=== PATIENT | male | born 1970 | race Caucasian/White ===

== ENCOUNTER 2018-11-06 03:56 | Inpatient (IN) | payer BC ==
[~2018-11-06] VITALS: Ht 177.8 cm; Wt 83.1 kg
[~2018-11-06 03:56] MED LIST: CARAS PO; FOLI-49 PO; METO10TA3 PO; MULTI PO; ONDA4TAB8 PO; PANT40TA4 PO; THIA100T10 PO
[2018-11-06 04:06] VITALS: Ht 177.8 cm; Wt 83.1 kg
[2018-11-06] MEDS ORDERED: OCTREOTIDE 500 MCG in SOD CHLORIDE 0.9% 49 ML IV STA (06:26)
[2018-11-06] MEDS ORDERED: ONDANSETRON 4 MG INJ IV STA (06:26)
[2018-11-06] MEDS ORDERED: PANTOPRAZOLE IV 80 MG in SOD CHLORIDE 0.9% 100 ML IV STA (06:26)
[2018-11-06] MEDS ORDERED: CEFTRIAXONE 1 GM/50 ML (PMX) 50 ML IVPB STA (06:26)
[2018-11-06] MEDS ORDERED: SOD CHLORIDE 0.9% 1,000 ML IV STA (06:26)
[2018-11-06] MEDS ORDERED: PANTOPRAZOLE IV 80 MG in SOD CHLORIDE 0.9% 100 ML IVPB STA (06:26)
[2018-11-06] MEDS ORDERED: OCTREOTIDE 50 MCG in SOD CHLORIDE 0.9% 25 ML IVPB STA (06:26)
[2018-11-06] MEDS ORDERED: MULTIVITAMINS 10 ML, THIAMINE 100 MG, FOLIC ACID 1 MG, MAGNESIUM SULFATE 2 GM in SOD CH... IV ONE (06:30)
[2018-11-06] MEDS ORDERED: LORAZEPAM 2 MG INJ IV ONE (06:30)
[2018-11-06] MEDS ORDERED: MULTIVITAMINS 10 ML, FOLIC ACID 1 MG, MAGNESIUM SULFATE 2 GM in SOD CHLORIDE 0.9% 1,000 ML IV ONE (08:00)
[2018-11-06] MEDS ORDERED: THIAMINE 100 MG TAB PO ONE (08:00)
[2018-11-06] MEDS ORDERED: ACETAMINOPHEN 325 MG TAB PO PRN ×2 (08:30→11:00)
[2018-11-06] MEDS ORDERED: ONDANSETRON 4 MG INJ IV PRN ×2 (08:30→11:00)
--- NOTE | 2018-11-06 09:05 | ERD ---
ER Documentation Chief Complaint Chief Complaint BIB-RA x hematemesis @ home; hx laser surgery of throat HPI This is a 48-year-old gentleman history of alcohol abuse, reported cirrhosis and esophageal varices who presents with multiple complaints. The patient states that he has had 1-2 episodes of hematemesis. He states that he has been binge drinking for 3-4 days. He does describe mild epigastric abdominal discomfort. No chest pain or pressure. The patient is feeling somewhat tremulous. ROS All systems reviewed and are negative except as per history of present illness. Medications Home Meds Active Scripts Ondansetron Hcl* (Zofran*) 4 Mg Tablet, 4 MG PO Q6H for NAUSEA AND/OR VOMITING, #30 TAB Prov:GHAZALA ADKINS PA-C 06/30/16 Folic Acid* (Folic Acid*) 1 Mg Tablet, 1 MG PO DAILY for 60 Days, TAB Prov:WEI LEMOS MD 05/28/16 Thiamine* (Thiamine*) 100 Mg Tablet, 100 MG PO DAILY for 60 Days, TAB Prov:WEI LEMOS MD 05/28/16 Multivitamins* (Theragran*) 1 Tab Tab, 1 TAB PO DAILY for 60 Days, TAB Prov:WEI LEMOS MD 05/28/16 Sucralfate* (Carafate*) 1 Gm/10 Ml Susp, 1 GM PO QID for 30 Days, #120 Prov:WEI LEMOS MD 05/28/16 Pantoprazole* (Pantoprazole*) 40 Mg Tablet.dr, 40 MG PO BID for 30 Days, #60 Prov:WEI LEMOS MD 05/28/16 Metoclopramide Hcl* (Metoclopramide Hcl*) 10 Mg Tablet, 10 MG PO Q6 for 30 Days, #120 TAB Prov:WEI LEMOS MD 05/28/16 Allergies Allergies: Coded Allergies: No Known Allergy (Unverified , 05/26/16) PMhx/Soc History of Surgery: Yes (Throat problem Surgery site thru temporal area. THROAT STENT PLACEMENT) Anesthesia Reaction: No Hx Neurological Disorder: No Hx Respiratory Disorders: No Hx Cardiac Disorders: No Hx Psychiatric Problems: Yes (anxiety-depression) Hx Miscellaneous Medical Probl: No (hiatal hernia, severe ulcerative espophagitis, PANCREATITIS, MADDIE CIRRHOSIS) Hx Alcohol Use: Yes Hx Substance Use: No Hx Tobacco Use: No (quit 25 years ago) Smoking Status: Former smoker FmHx Family History: No diabetes Physical Exam Vitals Vital Signs Date Temp Pulse Resp B/P (MAP) Pulse Ox O2 O2 Flow FiO2 Time Delivery Rate 11/06/18 98.3 92 18 153/82 96 04:06 (105) Physical Exam General: Slight tremor, no distress Head: Normocephalic, atraumatic. Eyes: Pupils equally reactive, EOM intact ENT: Moist mucous membranes Neck: Supple, no lymphadenopathy Respiratory: Lungs clear bilaterally, no distress Cardiovascular: RRR, no murmurs, rubs, or gallops Abdominal: Soft, non-tender, non-distended, no peritoneal signs : Deferred MSK: No edema, no unilateral swelling, 5/5 strength Neurologic: Alert and oriented, moving all extremities, normal speech, no focal weakness, no cerebellar signs Skin: No rash Psych: Normal mood Result Diagram: 11/06/18 0532 11/06/18 0532 Results 24 hrs Laboratory Tests Test 11/06/18 05:32 11/06/18 08:00 White Blood Count 4.9 10^3/ul Red Blood Count 4.36 10^6/ul Hemoglobin 13.1 g/dl Hematocrit 39.8 % Mean Corpuscular Volume 91.3 fl Mean Corpuscular Hemoglobin 30.0 pg Mean Corpuscular Hemoglobin Concent 32.9 g/dl Red Cell Distribution Width 17.4 % Platelet Count 143 10^3/UL Mean Platelet Volume 9.4 fl Immature Granulocytes % 0.200 % Neutrophils % 72.1 % Lymphocytes % 16.0 % Monocytes % 9.9 % Eosinophils % 0.8 % Basophils % 1.0 % Nucleated Red Blood Cells % 0.0 /100WBC Immature Granulocytes # 0.010 10^3/ul Neutrophils # 3.5 10^3/ul Lymphocytes # 0.8 10^3/ul Monocytes # 0.5 10^3/ul Eosinophils # 0.0 10^3/ul Basophils # 0.1 10^3/ul Nucleated Red Blood Cells # 0.0 10^3/ul Prothrombin Time 13.0 Sec Prothrombin Time Ratio 1.0 INR International Normalized Ratio 0.97 Activated Partial Thromboplast Time 31.8 Sec Sodium Level 139 mmol/L Potassium Level 4.1 mmol/L Chloride Level 99 mmol/L Carbon Dioxide Level 23 mmol/L Anion Gap 17 Blood Urea Nitrogen 10 mg/dl Creatinine 0.66 mg/dl Est Glomerular Filtrat Rate mL/min > 60 mL/min Glucose Level 100 mg/dl Calcium Level 9.7 mg/dl Total Bilirubin 0.5 mg/dl Direct Bilirubin 0.00 mg/dl Indirect Bilirubin 0.5 mg/dl Aspartate Amino Transf (AST/SGOT) 73 IU/L Alanine Aminotransferase (ALT/SGPT) 14 IU/L Alkaline Phosphatase 135 IU/L Total Protein 8.0 g/dl Albumin 4.3 g/dl Globulin 3.70 g/dl Albumin/Globulin Ratio 1.16 Troponin I < 0.012 ng/ml Lipase 26 U/L Current Medications Medications Dose Sig/Tk Start Time Status Last (Trade) Ordered Route PRN Stop Time Admin Dose Reason Admin Sodium 1,000 ml @ Q1H STAT 11/06/18 DC 11/06/18 Chloride 1,000 mls/hr IV 06:26 06:56 11/06/18 07:25 Pantoprazole 100 ml @ ONCE STAT 11/06/18 DC 11/06/18 80 mg/Sodium 400 mls/hr IVPB 06:26 06:26 Chloride 11/06/18 06:40 Pantoprazole 100 ml @ ONCE STAT 11/06/18 11/06/18 80 mg/Sodium 10 mls/hr IV 06:26 08:05 Chloride 11/06/18 16:25 Octreotide 26 ml @ Q16M STAT 11/06/18 DC 11/06/18 Acetate 50 100 mls/hr IVPB 06:26 07:04 mcg/ Sodium 11/06/18 06:41 Chloride Octreotide 50 ml @ 5 ONCE STAT 11/06/18 11/06/18 Acetate 500 mls/hr IV 06:26 07:04 mcg/ Sodium 11/06/18 16:25 Chloride Ondansetron 4 mg ONCE STAT 11/06/18 DC 11/06/18 HCl (Zofran IV 06:26 06:55 Inj) 11/06/18 06:28 Ceftriaxone 50 ml @ ONCE STAT 11/06/18 DC 11/06/18 Sodium 100 mls/hr IVPB 06:26 06:56 11/06/18 06:55 1,000 ml @ Q2H ONCE 11/06/18 DC Multivitamins 500 mls/hr IV 06:30 10 11/06/18 07:54 ml/Thiamine HCl 100 mg/Folic Acid 1 mg/Magnesium Sulfate 2 gm/ Sodium Chloride Lorazepam 1 mg ONCE ONCE 11/06/18 DC 11/06/18 (Ativan) IV 06:30 06:55 11/06/18 06:31 Thiamine 100 mg ONCE ONCE 11/06/18 DC 11/06/18 HCl PO 08:00 08:49 (Vitamin B1) 11/06/18 08:01 1,014.2 ml Q2H2M ONCE 11/06/18 11/06/18 Multivitamins @ 500 mls/ IV 08:00 08:49 10 ml/Folic hr 11/06/18 10:01 Acid 1 mg/Magnesium Sulfate 2 gm/ Sodium Chloride Ondansetron 4 mg BRIDGE ORDER 11/06/18 HCl (Zofran PRN IV 08:30 Inj) NAUSEA/VOMITI 11/07/18 08:29 NG 650 mg ER BRIDGE 11/06/18 Acetaminophen PRN PO 08:30 (Tylenol .MILD PAIN 11/07/18 08:29 Tab) 1-3 OR TEMP Procedures/MDM EKG, MONITORS, & DIAGNOSTIC IMAGING: EKG: I reviewed and interpreted a 12-lead EKG. Rhythm: Normal sinus rhythm ST Changes: No contiguous ST segment elevations T waves: No contiguous T wave inversions Impression: No evidence of acute cardiac ischemia LAB INTERPRETATION: I reviewed the laboratory testing and it shows no evidence of acute process MEDICAL DECISION MAKING: The patient presents with multiple signs and symptoms consistent with mild withdrawal and likely upper GI hemorrhage. The patient is high risk given his history of cirrhosis and esophageal varices. He has no evidence of active hemorrhage currently. He does exhibit mild withdrawal symptoms that would benefit from benzodiazepines and multivitamins. ER COURSE: * Patient was given PPI bolus and drip, octreotide bolus and drip, antibiotics empirically * Patient has no evidence of further bleeding and does not require NG tube or lavage * He was given IV fluids, multivitamin, banana bag and Ativan * Patient remains him dynamically stable and can be safely admitted with nonemergent GI consultation CONSULTATION: None DISPOSITION PLAN: Accepting care team and consultations: I discussed the current laboratory data, diagnostic imaging and emergency care provided. Admitting team: Dr. Currie Admitting team indication: Insurance directed Departure Diagnosis: Primary Impression: Hematemesis Nausea presence: without nausea Qualified Codes: K92.0 - Hematemesis Additional Impressions: Upper GI hemorrhage Alcohol withdrawal Complication of substance-induced condition: uncomplicated Qualified Codes: F10.230 - Alcohol dependence with withdrawal, uncomplicated Alcohol abuse Condition: EVELYN Wade MD Nov 06, 2018 09:05
[2018-11-06] MEDS ORDERED: THIA100T56 PO (09:26)
[2018-11-06] MEDS ORDERED: PANT40TA3 PO (09:27)
[2018-11-06] MEDS ORDERED: FOLI-49 PO (09:27)
[2018-11-06] MEDS ORDERED: MULTI PO (09:27)
[2018-11-06] MEDS ORDERED: ONDA4TAB8 PO (09:27)
[2018-11-06 10:03] VITALS: BP 119/77; PULSE 84; RESP 16
[2018-11-06] MEDS ORDERED: NACL 0.9% 3 ML SYG IV SCH (11:00)
[2018-11-06] MEDS ORDERED: LORAZEPAM 2 MG INJ IV PRN (11:30)
--- NOTE | 2018-11-06 11:34 | HP ---
Date/Time of Note Date/Time of Note DATE: 11/06/18 TIME: 11:22 Assessment/Plan VTE Prophylaxis SCD applied (from Nsg): Yes Pharmacological prophylaxis: NA/contraindicated Pharm contraindication: bleeding Lines/Catheters IV Catheter Type (from Nrsg): Saline Lock Assessment/Plan Assessment/Plan 48 yo alcoholic man with cirrhosis presents with hematemesis #Hematemesis - Bloodstreaked emesis after days of vomiting is likely sybil-murphy tears. Also patient hemodynamically stable without anemia on admission. - However, with history of varices and active alcohol use must be cautious - Will consult GI for EGD - PPI, octreotide gtt. - NPO #Cirrhosis - Etiology: alcohol - Will get RUQ US to confirm diagnosis - Patient reports taking lactulose at home but currently having diarrhea. Will resume when diarrhea resolves. #Alcohol use - Reports withdrawal in the past - Will start with prn Ativan, start Librium taper if high requirements. - Social work consult. Patient does report being part of AA. DVT: SCDs GI: PPI gtt Result Diagram: 11/06/18 0532 11/06/18 0532 HPI/ROS Admit Date/Time Admit Date/Time Nov 06, 2018 at 08:24 Hx of Present Illness Mr. Jara is a 48 yo alcoholic man with history of pancreatitis, cirrhosis, and bleeding esophageal varices who presents with hematemesis. He was in his usual state of health until a few days ago, when his friend and the patient relapsed from several months of sobriety, going on a drinking binge. Reports about 5 drinks hard liquor per day. About 3 days ago he developed nausea and intractable vomiting with PO intolerance; also watery diarrhea without blood or melena. This morning he woke up to vomit and there was streaks of blood in it. Last drink of alcohol was 9 pm last night. Last hospitalization was April 2018 at [facility] for acute pancreatitis. In May he had EGD at [place] showing ulcerative esophagitis. In the ED he was afebrile, vitals normal. Hgb was 13.1. Labs otherwise unremarkable, also with normal lipase. ROS He denies fever, chills, night sweats, headache, vision changes. He DOES report throat pain. Denies abdominal pain, constipation, dyspnea, cough, chest pain/pressure/palpitations, melena, hematochezia PMH/Family/Social Past Medical History Alcoholic cirrhosis History of pancreatitis Medications Current Medications Pantoprazole 80 mg/Sodium Chloride 100 ml @ 10 mls/hr ONCE STAT IV Last administered on 11/06/18at 08:05; Admin Dose 10 MLS/HR; Start 11/06/18 at 06:26; Stop 11/06/18 at 16:25 Octreotide Acetate 500 mcg/ Sodium Chloride 50 ml @ 5 mls/hr ONCE STAT IV Last administered on 11/06/18at 07:04; Admin Dose 5 MLS/HR; Start 11/06/18 at 06:26; Stop 11/06/18 at 16:25 Ondansetron HCl (Zofran Inj) 4 mg BRIDGE ORDER PRN IV NAUSEA/VOMITING; Start 11/06/18 at 08:30; Stop 11/07/18 at 08:29 Acetaminophen (Tylenol Tab) 650 mg ER BRIDGE PRN PO .MILD PAIN 1-3 OR TEMP; Start 11/06/18 at 08:30; Stop 11/07/18 at 08:29 Coded Allergies: No Known Allergy (Unverified , 11/06/18) Past Surgical History 10-11 throat surgeries for complications after traumatic extubation Family History Significant Family History: no pertinent family hx Social History Alcohol Use: heavy Smoking Status: Former smoker Drug Use: none Exam/Review of Systems Vital Signs Vitals Vital Signs Date Temp Pulse Resp B/P (MAP) Pulse Ox O2 O2 Flow FiO2 Time Delivery Rate 11/06/18 98.4 84 16 119/77 96 10:03 (91) 11/06/18 Nasal 2.0 09:08 Cannula Exam Exam Gen: Well developed man lying in bed, well appearing. Eyes: PERRL, no icterus HEENT: Moist mucous membranes, clear oropharynx, no pharyngeal erythema or exudates Neck: Supple, nontender Card: Regular rate and rhythm, no murmurs Pulm: Clear to auscultation bilaterally Abd: Soft, nontender, nondistended. No palpable hepatosplenomegaly. No ascencio's sign Ext: No cyanosis/clubbing/edema Skin: warm, dry, well perfused. No spider angiomata Neuro: No tremors, asterixes. LUIS RITTER MD Nov 06, 2018 11:33
[2018-11-06 14:02] VITALS: BP 130/87; PULSE 86; RESP 16
[2018-11-06 20:40] VITALS: BP 132/82; PULSE 71; RESP 16
[2018-11-07] VITALS (7 sets, daily range): BP systolic 110–135; BP diastolic 70–104; PULSE 66–99; RESP 16–18
--- NOTE | 2018-11-07 12:10 | PN ---
Date/Time of Note Date/Time of Note DATE: 11/07/18 TIME: 12:07 Assessment/Plan VTE Prophylaxis Risk score (from [facility])>0 risk: 2 SCD applied (from [facility]): Yes Pharmacological prophylaxis: other Pharm contraindication: bleeding, liver dx Lines/Catheters IV Catheter Type (from [facility] [place]): Saline Lock Assessment/Plan Assessment/Plan 1. Upper GI bleeding, NPO, protonix, follow up with GI 2. Liver cirrhosis, chronic 3. Alcoholism, on ativan prn 4. DVT: SCDs Result Diagram: 11/07/18 0511 11/07/18 0511 Results 24hrs Laboratory Tests Test 11/07/18 05:11 White Blood Count 2.8 #L Red Blood Count 3.65 L Hemoglobin 11.2 L Hematocrit 34.2 L Mean Corpuscular Volume 93.7 Mean Corpuscular Hemoglobin 30.7 Mean Corpuscular Hemoglobin Concent 32.7 Red Cell Distribution Width 16.5 H Platelet Count 81 #L Mean Platelet Volume 9.7 Immature Granulocytes % 0.400 Neutrophils % 60.2 Segmented Neutrophils % (Manual) 56 Band Neutrophils % (Manual) 13 H Lymphocytes % 22.0 Lymphocytes % (Manual) 16 Reactive Lymphocytes % (Manual) 2 H Monocytes % 12.4 H Monocytes % (Manual) 7 Eosinophils % 3.9 Eosinophils % (Manual) 4 Basophils % 1.1 Basophils % (Manual) 1 Myelocytes % (Manual) 1 H Nucleated Red Blood Cells % 0.0 Immature Granulocytes # 0.010 Neutrophils # 1.7 Neutrophils # (Manual) 1.6 Band Neutrophils # 0.3 Lymphocytes (Manual) 0.4 L Lymphocytes # 0.6 L Reactive Lymphocytes # 0.0 Monocytes # 0.4 Monocytes # (Manual) 0.1 L Eosinophils # 0.1 Basophils # 0.0 Basophils # (Manual) 0.0 Myelocytes # 0.0 Nucleated Red Blood Cells # 0.0 Platelet Estimate DECREASED Polychromasia 3+ Hypochromasia 1+ Poikilocytosis 1+ Anisocytosis 1+ Target Cells 1+ Sodium Level 138 Potassium Level 4.0 Chloride Level 100 Carbon Dioxide Level 26 Anion Gap 12 Blood Urea Nitrogen 9 Creatinine 0.68 Est Glomerular Filtrat Rate mL/min > 60 Glucose Level 111 Hemoglobin A1c 5.5 Calcium Level 9.0 Phosphorus Level 3.0 Magnesium Level 1.9 Total Bilirubin 0.9 Direct Bilirubin 0.00 Indirect Bilirubin 0.9 Aspartate Amino Transf (AST/SGOT) 50 H Alanine Aminotransferase (ALT/SGPT) 10 L Alkaline Phosphatase 100 Total Protein 7.0 # Albumin 3.6 Globulin 3.40 H Albumin/Globulin Ratio 1.05 Thyroid Stimulating Hormone (TSH) 2.710 Subjective 24 Hr Interval Summary Free Text/Dictation no nausea or vomiting, no abdominal pain today Exam/Review of Systems Exam Vitals Vital Signs Date Temp Pulse Resp B/P (MAP) Pulse Ox O2 O2 Flow FiO2 Time Delivery Rate 11/07/18 98.8 67 18 134/77 96 Room Air 07:31 (96) 11/06/18 2.0 09:08 Intake and Output 11/06/18 11/06/18 11/07/18 1515:00 23:00 07:00 IntakeIntake Total 1014.2 ml 150 ml 100 ml BalanceBalance 1014.2 ml 150 ml 100 ml Constitutional: alert, oriented, well developed Psych: no complaints, nl mood/affect Head: normocephalic, atraumatic Eyes: nl conjunctiva, EOMI, nl lids ENMT: nl external ears & nose, nl lips & teeth, nl nasal mucosa & septum Neck: supple, non-tender Respiratory: clear to auscultation, normal air movement; No congested cough, No crackles/rales, No diminished breath sounds, No intercostal retraction, No labored breathing, No respirations, No tactile fremitus, No wheezing, No other Cardiovascular: regular rate and rhythm, nl pulses; No bruits, No diastolic murmur, No edema, No gallop, No irregular rhythm, No jugular venous distention (JVD), No murmurs/extra sounds, No rub, No systolic murmur, No S3, No S4, No other Gastrointestinal: soft, nl liver, spleen, non-tender Musculoskeletal: nl extremities to inspection Extremities: normal pulses; No calf tenderness, No cyanosis, No clubbing, No edema, No pitting pedal edema, No palpable cord, No tenderness, No other Neurological: [employer] II-XII intact, nl mental status, nl speech, nl strength Results Results 24hrs Laboratory Tests Test 11/07/18 05:11 White Blood Count 2.8 #L Red Blood Count 3.65 L Hemoglobin 11.2 L Hematocrit 34.2 L Mean Corpuscular Volume 93.7 Mean Corpuscular Hemoglobin 30.7 Mean Corpuscular Hemoglobin Concent 32.7 Red Cell Distribution Width 16.5 H Platelet Count 81 #L Mean Platelet Volume 9.7 Immature Granulocytes % 0.400 Neutrophils % 60.2 Segmented Neutrophils % (Manual) 56 Band Neutrophils % (Manual) 13 H Lymphocytes % 22.0 Lymphocytes % (Manual) 16 Reactive Lymphocytes % (Manual) 2 H Monocytes % 12.4 H Monocytes % (Manual) 7 Eosinophils % 3.9 Eosinophils % (Manual) 4 Basophils % 1.1 Basophils % (Manual) 1 Myelocytes % (Manual) 1 H Nucleated Red Blood Cells % 0.0 Immature Granulocytes # 0.010 Neutrophils # 1.7 Neutrophils # (Manual) 1.6 Band Neutrophils # 0.3 Lymphocytes (Manual) 0.4 L Lymphocytes # 0.6 L Reactive Lymphocytes # 0.0 Monocytes # 0.4 Monocytes # (Manual) 0.1 L Eosinophils # 0.1 Basophils # 0.0 Basophils # (Manual) 0.0 Myelocytes # 0.0 Nucleated Red Blood Cells # 0.0 Platelet Estimate DECREASED Polychromasia 3+ Hypochromasia 1+ Poikilocytosis 1+ Anisocytosis 1+ Target Cells 1+ Sodium Level 138 Potassium Level 4.0 Chloride Level 100 Carbon Dioxide Level 26 Anion Gap 12 Blood Urea Nitrogen 9 Creatinine 0.68 Est Glomerular Filtrat Rate mL/min > 60 Glucose Level 111 Hemoglobin A1c 5.5 Calcium Level 9.0 Phosphorus Level 3.0 Magnesium Level 1.9 Total Bilirubin 0.9 Direct Bilirubin 0.00 Indirect Bilirubin 0.9 Aspartate Amino Transf (AST/SGOT) 50 H Alanine Aminotransferase (ALT/SGPT) 10 L Alkaline Phosphatase 100 Total Protein 7.0 # Albumin 3.6 Globulin 3.40 H Albumin/Globulin Ratio 1.05 Thyroid Stimulating Hormone (TSH) 2.710 Medications Medication Current Medications IV Flush (NS 3 ml) 3 ml PER PROTOCOL IV ; Start 11/06/18 at 11:00 Ondansetron HCl (Zofran Inj) 4 mg Q6H PRN IV NAUSEA/VOMITING; Start 11/06/18 at 11:00 Acetaminophen (Tylenol Tab) 650 mg Q6H PRN PO .PAIN 1-3 OR TEMP; Start 11/06/18 at 11:00 Lorazepam (Ativan) 2 mg Q2H PRN IV alcohol withdrawal symptoms; Start 11/06/18 at 11:30 IVONE RYAN MD Nov 07, 2018 12:10
--- NOTE | 2018-11-07 12:15 | CONS ---
Assessment/Plan Assessment/Plan Hospital Course (Demo Recall) Summary Assessment and Plan: Assessment: Hematemesis Normocytic anemia Questionable history of Cirrhosis- DF -8.2- methylprednisolone not indicated -Abd us- fatty liver ETOH abuse History of gastric ulcers History of esophagitis Plan: PPI gtt/octreotide drip has been DC'd Restart PPI twice daily Keep NPO EGD today Endoscopy - risks/benefits/alternatives/indications of procedure and sedat ion/anesthesia discussed with patient who states understanding and gives informed consent to proceed. Patient seen in collaboration with Dr. 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 Recent recently relapsed after being sober for 3 months and went on a 3 day binge. After abruptly stopping he developed intractable n/v as well as diarrhea, he noted blood in his emesis and came to the ED for further evaluation, last drink was Wednesday or Wednesday night. Currently patient states he feels much better. I disucssed plan for EGD reviewed risks/benefits of sedation and procedure. Pt verbalized understanding stating he has had previous EGDs. Review of Systems: A 12 system, review was conducted and is negative except as noted in the HPI or here. Past Medical History Home Meds Reported Medications Pantoprazole* (Protonix*) 40 Mg Tablet.dr, 40 MG PO DAILY, TAB 11/06/18 Ondansetron Hcl* (Zofran*) 4 Mg Tablet, 4 MG PO Q6H PRN for NAUSEA AND OR VOMITING, TAB 11/06/18 Multivitamins* (Theragran*) 1 Tab Tab, 1 TAB PO DAILY, TAB 11/06/18 Folic Acid* (Folic Acid*) 1 Mg Tablet, 1 MG PO DAILY, TAB 11/06/18 Thiamine* (Vitamin B-1*) 100 Mg Tablet, 100 MG PO DAILY, TAB 11/06/18 Discontinued Scripts Ondansetron Hcl* (Zofran*) 4 Mg Tablet, 4 MG PO Q6H for NAUSEA AND/OR VOMITING, #30 TAB Prov:GHAZALA ADIKNS PA-C 06/30/16 Folic Acid* (Folic Acid*) 1 Mg Tablet, 1 MG PO DAILY for 60 Days, TAB Prov:WEI LEMOS MD 05/28/16 Thiamine* (Thiamine*) 100 Mg Tablet, 100 MG PO DAILY for 60 Days, TAB Prov:WEI LEMOS MD 05/28/16 Multivitamins* (Theragran*) 1 Tab Tab, 1 TAB PO DAILY for 60 Days, TAB Prov:WEI LEMOS MD 05/28/16 Sucralfate* (Carafate*) 1 Gm/10 Ml Susp, 1 GM PO QID for 30 Days, #120 Prov:WEI LEMOS MD 05/28/16 Pantoprazole* (Pantoprazole*) 40 Mg Tablet.dr, 40 MG PO BID for 30 Days, #60 Prov:WEI LEMOS MD 05/28/16 Metoclopramide Hcl* (Metoclopramide Hcl*) 10 Mg Tablet, 10 MG PO Q6 for 30 Days, #120 TAB Prov:WEI LEMOS MD 05/28/16 Medications Current Medications IV Flush (NS 3 ml) 3 ml PER PROTOCOL IV ; Start 11/06/18 at 11:00 Ondansetron HCl (Zofran Inj) 4 mg Q6H PRN IV NAUSEA/VOMITING; Start 11/06/18 at 11:00 Acetaminophen (Tylenol Tab) 650 mg Q6H PRN PO .PAIN 1-3 OR TEMP; Start 11/06/18 at 11:00 Lorazepam (Ativan) 2 mg Q2H PRN IV alcohol withdrawal symptoms; Start 11/06/18 at 11:30 Allergies: Coded Allergies: No Known Allergy (Unverified , 11/06/18) Social History Alcohol Use: heavy Smoking Status: Former smoker Drug Use: none Exam/Review of Systems Exam Vitals Vital Signs Date Temp Pulse Resp B/P (MAP) Pulse Ox O2 O2 Flow FiO2 Time Delivery Rate 11/07/18 98.8 67 18 134/77 96 Room Air 07:31 (96) 11/06/18 2.0 09:08 Intake and Output 11/06/18 11/06/18 11/07/18 1515:00 23:00 07:00 IntakeIntake Total 1014.2 ml 150 ml 100 ml BalanceBalance 1014.2 ml 150 ml 100 ml Exam PHYSICAL EXAMINATION: GENERAL: Well developed, well nourished, alert & oriented x 3, in no acute distress SKIN: No lesions EYES: Pupils equal reactive to light, non-icteric, no discharge. EARS/NOSE AND THROAT: Ears normal, nose normal, oropharynx normal, oral membranes well hydrated without lesions. NECK: Supple CHEST: Inspection within normal limits. CARDIOVASCULAR: Heart: Regular rate and rhythm RESPIRATORY: Lungs clear to auscultation GASTROINTESTINAL AND LIVER: Abdomen: Soft, non tenderness, non-distended, no hernias, no masses, no organomegaly, no ascites, no guarding, no rebound tenderness, normoactive bowel sounds. Rectal: Deferred. EXTREMITIES: No cyanosis, clubbing or edema. Results Result Diagram: 11/07/18 0511 11/07/18 0511 Results 24hrs Laboratory Tests Test 11/07/18 05:11 White Blood Count 2.8 #L Red Blood Count 3.65 L Hemoglobin 11.2 L Hematocrit 34.2 L Mean Corpuscular Volume 93.7 Mean Corpuscular Hemoglobin 30.7 Mean Corpuscular Hemoglobin Concent 32.7 Red Cell Distribution Width 16.5 H Platelet Count 81 #L Mean Platelet Volume 9.7 Immature Granulocytes % 0.400 Neutrophils % 60.2 Segmented Neutrophils % (Manual) 56 Band Neutrophils % (Manual) 13 H Lymphocytes % 22.0 Lymphocytes % (Manual) 16 Reactive Lymphocytes % (Manual) 2 H Monocytes % 12.4 H Monocytes % (Manual) 7 Eosinophils % 3.9 Eosinophils % (Manual) 4 Basophils % 1.1 Basophils % (Manual) 1 Myelocytes % (Manual) 1 H Nucleated Red Blood Cells % 0.0 Immature Granulocytes # 0.010 Neutrophils # 1.7 Neutrophils # (Manual) 1.6 Band Neutrophils # 0.3 Lymphocytes (Manual) 0.4 L Lymphocytes # 0.6 L Reactive Lymphocytes # 0.0 Monocytes # 0.4 Monocytes # (Manual) 0.1 L Eosinophils # 0.1 Basophils # 0.0 Basophils # (Manual) 0.0 Myelocytes # 0.0 Nucleated Red Blood Cells # 0.0 Platelet Estimate DECREASED Polychromasia 3+ Hypochromasia 1+ Poikilocytosis 1+ Anisocytosis 1+ Target Cells 1+ Sodium Level 138 Potassium Level 4.0 Chloride Level 100 Carbon Dioxide Level 26 Anion Gap 12 Blood Urea Nitrogen 9 Creatinine 0.68 Est Glomerular Filtrat Rate mL/min > 60 Glucose Level 111 Hemoglobin A1c 5.5 Calcium Level 9.0 Phosphorus Level 3.0 Magnesium Level 1.9 Total Bilirubin 0.9 Direct Bilirubin 0.00 Indirect Bilirubin 0.9 Aspartate Amino Transf (AST/SGOT) 50 H Alanine Aminotransferase (ALT/SGPT) 10 L Alkaline Phosphatase 100 Total Protein 7.0 # Albumin 3.6 Globulin 3.40 H Albumin/Globulin Ratio 1.05 Thyroid Stimulating Hormone (TSH) 2.710 Medications Medication Current Medications IV Flush (NS 3 ml) 3 ml PER PROTOCOL IV ; Start 11/06/18 at 11:00 Ondansetron HCl (Zofran Inj) 4 mg Q6H PRN IV NAUSEA/VOMITING; Start 11/06/18 at 11:00 Acetaminophen (Tylenol Tab) 650 mg Q6H PRN PO .PAIN 1-3 OR TEMP; Start 11/06/18 at 11:00 Lorazepam (Ativan) 2 mg Q2H PRN IV alcohol withdrawal symptoms; Start 11/06/18 at 11:30 DARRICK LOPEZ Nov 07, 2018 12:15
--- NOTE | 2018-11-07 13:14 | PREAC ---
Date/Time of Note Date/Time of Note DATE: 11/07/18 TIME: 13:14 Anesthesia Eval and Record Evaluation Time Pre-Procedure Interview DATE: 11/07/18 TIME: 13:14 Age 48 Sex male NPO: 8 hrs Preoperative diagnosis Hematemesis Planned procedure EGD Past Medical History Past Medical History: Includes Pulm: Smoking Hx Hepatic: Alcohol abuse, Cirrhosis GI: Other (Esophageal varices) Psych: Depression, Anxiety Surgery & Anesthesia Issues No known issue Meds Anticoagulation: No Beta Aric within 24 hr: No Reason Beta Aric not given: Pt. not on B-Aric Reported Medications Pantoprazole* (Protonix*) 40 Mg Tablet.dr, 40 MG PO DAILY, TAB 11/06/18 Ondansetron Hcl* (Zofran*) 4 Mg Tablet, 4 MG PO Q6H PRN for NAUSEA AND OR VOMITING, TAB 11/06/18 Multivitamins* (Theragran*) 1 Tab Tab, 1 TAB PO DAILY, TAB 11/06/18 Folic Acid* (Folic Acid*) 1 Mg Tablet, 1 MG PO DAILY, TAB 11/06/18 Thiamine* (Vitamin B-1*) 100 Mg Tablet, 100 MG PO DAILY, TAB 11/06/18 Discontinued Scripts Ondansetron Hcl* (Zofran*) 4 Mg Tablet, 4 MG PO Q6H for NAUSEA AND/OR VOMITING, #30 TAB Prov:GHAZALA ADKINS PA-C 06/30/16 Folic Acid* (Folic Acid*) 1 Mg Tablet, 1 MG PO DAILY for 60 Days, TAB Prov:WEI LEMOS MD 05/28/16 Thiamine* (Thiamine*) 100 Mg Tablet, 100 MG PO DAILY for 60 Days, TAB Prov:WEI LEMOS MD 05/28/16 Multivitamins* (Theragran*) 1 Tab Tab, 1 TAB PO DAILY for 60 Days, TAB Prov:WEI LEMOS MD 05/28/16 Sucralfate* (Carafate*) 1 Gm/10 Ml Susp, 1 GM PO QID for 30 Days, #120 Prov:WIE LEMOS MD 05/28/16 Pantoprazole* (Pantoprazole*) 40 Mg Tablet., 40 MG PO BID for 30 Days, #60 Prov:WEI LEMOS MD 05/28/16 Metoclopramide Hcl* (Metoclopramide Hcl*) 10 Mg Tablet, 10 MG PO Q6 for 30 Days, #120 TAB Prov:WEI LEMOS MD 05/28/16 Current Medications IV Flush (NS 3 ml) 3 ml PER PROTOCOL IV ; Start 11/06/18 at 11:00 Ondansetron HCl (Zofran Inj) 4 mg Q6H PRN IV NAUSEA/VOMITING; Start 11/06/18 at 11:00 Acetaminophen (Tylenol Tab) 650 mg Q6H PRN PO .PAIN 1-3 OR TEMP; Start 11/06/18 at 11:00 Lorazepam (Ativan) 2 mg Q2H PRN IV alcohol withdrawal symptoms; Start 11/06/18 at 11:30 Pantoprazole (Protonix Tab) 40 mg BID@06,18 PO ; Start 11/07/18 at 18:00 Meds reviewed: Yes Allergies Coded Allergies: No Known Allergy (Unverified , 11/06/18) Allergies Reviewed: Yes Labs/Studies Labs Reviewed: Reviewed by anesthesiologist Result Diagram: 11/07/18 0511 11/07/18 0511 Laboratory Tests 11/07/18 05:11 test: N/A Pre-procedure Exam Last vitals Vital Signs Date Temp Pulse Resp B/P (MAP) Pulse Ox O2 O2 Flow FiO2 Time Delivery Rate 11/07/18 98.8 67 18 134/77 96 Room Air 07:31 (96) 11/06/18 2.0 09:08 Airway: Adequate mouth opening Mallampati: Mallampati I Teeth: Normal Lung: Normal Heart: Normal ASA Physical Status ASA physical status: 3 Emergency: None Planned Anesthetic General/MAC: MAC Planned Pain Management Parenteral pain med Pre-operative Attestations Prior to commencing anesthesia and surgery, the patient was re-evaluated, there was verification of: *The patient's identity *The results of appropriate recent lab work and preoperative vital signs *The above evaluation not changing prior to induction *Anesthetic plan, risk benefits, alternative and complications discussed with patient/family; questions answered; patient/family understands, accepts and wishes to proceed. MELISSA GUSMAN MD Nov 07, 2018 13:14
[2018-11-07] MEDS ORDERED: PROPOFOL 20 ML ONE (13:30)
--- NOTE | 2018-11-07 13:46 | HPN ---
Date/Time of Note Date/Time of Note DATE: 11/07/18 TIME: 13:46 Interval H&P Admission Note Pt. seen H&P reviewed: No system changes NANCI VARGAS Nov 07, 2018 13:46
[2018-11-07] MEDS ORDERED: ONDANSETRON 4 MG INJ ONE (13:54)
[2018-11-07] MEDS ORDERED: ONDANSETRON 4 MG INJ IV STA (14:00)
--- NOTE | 2018-11-07 15:54 | PAC ---
Date/Time of Note Date/Time of Note DATE: 11/07/18 TIME: 15:54 Post-Anesthesia Notes Post-Anesthesia Note Last documented vital signs Vital Signs Date Temp Pulse Resp B/P (MAP) Pulse Ox O2 O2 Flow FiO2 Time Delivery Rate 11/07/18 98.3 66 16 122/82 95 Room Air 14:29 (95) 11/06/18 2.0 09:08 Activity: WNL Respiratory function: WNL Cardiovascular function: WNL Mental status: Baseline Pain reasonably controlled: Yes Hydration appropriate: Yes Nausea/Vomiting absent: Yes MELISSA GUSMAN MD Nov 07, 2018 15:54
[2018-11-07] MEDS: PANTOPRAZOLE (EC) 40 MG TAB PO SCH (17:59)
[2018-11-07] MEDS ORDERED: traZODone 50 MG TAB PO ONE (22:30)
[2018-11-08 02:32] VITALS: BP 106/64; PULSE 70; RESP 16
[2018-11-08] MEDS: PANTOPRAZOLE (EC) 40 MG TAB PO SCH (05:24)
[2018-11-08 07:50] VITALS: BP 104/59; PULSE 84; RESP 20
[2018-11-08] MEDS ORDERED: PANT40TA4 PO (13:44)
[2018-11-08] MEDS ORDERED: SUCR1TAB56 PO (13:44)
--- NOTE | 2018-11-08 13:50 | DS ---
Date/Time of Note Date/Time of Note DATE: 11/08/18 TIME: 13:46 Discharge Summary Admission/Discharge Info Admit Date/Time Nov 06, 2018 at 08:24 Discharge Date/Time Discharge Diagnosis 1. Upper GI bleeding, stopped, gastritis and esophagitis on EGD 11/07/2018, pr otonix and carafate, follow up with GI 2. Liver cirrhosis, chronic, follow up with PCP 3. Alcoholism, advise to quit Patient Condition: Stable Hospital Course Mr. Jara is a 48 yo alcoholic man with history of pancreatitis, cirrhosis, and bleeding esophageal varices who presents with hematemesis. He was in his usual state of health until a few days ago, when his friend and the patient relapsed from several months of sobriety, going on a drinking binge. Reports about 5 drinks hard liquor per day. About 3 days ago he developed nausea and intractable vomiting with PO intolerance; also watery diarrhea without blood or melena. This morning he woke up to vomit and there was streaks of blood in it. Last drink of alcohol was 9 pm last night. Last hospitalization was April 2018 at [facility] for acute pancreatitis. In May he had EGD at [facility] showing ulcerative esophagitis. Abdominal pain and nausea vomiting resolved after admission and on protonix. H/H are stable. EGD on 11/07/2018 revealed gastritis and esophagitis, patient is on protonix and carafate and he is instructed to avoid NSAIDS and alcohol. Follow up with PCP and GI. Home Meds Active Scripts Sucralfate* (Carafate*) 1 Gm Tab, 1 GM PO AC MEALS AND BEDTIME for 30 Days, TAB Prov:IVONE RYAN MD 11/08/18 Pantoprazole* (Pantoprazole*) 40 Mg Tablet.dr 40 MG PO BID@,18 for 30 Days Prov:IVONE RYAN MD 11/08/18 Reported Medications Ondansetron Hcl* (Zofran*) 4 Mg Tablet, 4 MG PO Q6H PRN for NAUSEA AND OR VOMITING, TAB 11/06/18 Multivitamins* (Theragran*) 1 Tab Tab, 1 TAB PO DAILY, TAB 11/06/18 Folic Acid* (Folic Acid*) 1 Mg Tablet, 1 MG PO DAILY, TAB 11/06/18 Thiamine* (Vitamin B-1*) 100 Mg Tablet, 100 MG PO DAILY, TAB 11/06/18 Discontinued Reported Medications Pantoprazole* (Protonix*) 40 Mg Tablet., 40 MG PO DAILY, TAB 11/06/18 Discontinued Scripts Ondansetron Hcl* (Zofran*) 4 Mg Tablet, 4 MG PO Q6H for NAUSEA AND/OR VOMITING, #30 TAB Prov:GHAZALA ADKINS PA-C 06/30/16 Folic Acid* (Folic Acid*) 1 Mg Tablet, 1 MG PO DAILY for 60 Days, TAB Prov:WEI LEMOS MD 05/28/16 Thiamine* (Thiamine*) 100 Mg Tablet, 100 MG PO DAILY for 60 Days, TAB Prov:WEI LEMOS MD 05/28/16 Multivitamins* (Theragran*) 1 Tab Tab, 1 TAB PO DAILY for 60 Days, TAB Prov:WEI LEMOS MD 05/28/16 Sucralfate* (Carafate*) 1 Gm/10 Ml Susp, 1 GM PO QID for 30 Days, #120 Prov:WEI LEMOS MD 05/28/16 Pantoprazole* (Pantoprazole*) 40 Mg Tablet., 40 MG PO BID for 30 Days, #60 Prov:WEI LEMOS MD 05/28/16 Metoclopramide Hcl* (Metoclopramide Hcl*) 10 Mg Tablet, 10 MG PO Q6 for 30 Days, #120 TAB Prov:WEI LEMOS MD 05/28/16 Follow-up Plan PCP and GI in one week Primary Care Provider Not On Staff Doctor Pending Labs Laboratory Tests Test 11/08/18 05:36 White Blood Count 3.7 10^3/ul (4.8-10.8) Red Blood Count 3.83 10^6/ul (4.70-6.10) Hemoglobin 11.4 g/dl (14.0-18.0) Hematocrit 35.6 % (42.0-52.0) Mean Corpuscular Volume 93.0 fl (82.0-101.0) Mean Corpuscular Hemoglobin 29.8 pg (29.0-33.0) Mean Corpuscular Hemoglobin Concent 32.0 g/dl (32.0-37.0) Red Cell Distribution Width 16.7 % (11.5-14.5) Platelet Count 77 10^3/UL (140-415) Mean Platelet Volume 10.5 fl (7.4-10.4) Immature Granulocytes % 0.300 % (0.001-0.429) Neutrophils % 62.9 % (39.0-77.0) Segmented Neutrophils % (Manual) 42 % (39-77) Band Neutrophils % (Manual) 8 % (0-4) Lymphocytes % 21.9 % (15.0-51.0) Lymphocytes % (Manual) 27 % (15-51) Reactive Lymphocytes % (Manual) 6 % (0-0) Monocytes % 10.3 % (0.0-11.0) Monocytes % (Manual) 9 % (0-11) Eosinophils % 4.1 % (0.0-7.0) Eosinophils % (Manual) 4 % (0-7) Basophils % 0.5 % (0.0-2.0) Basophils % (Manual) 3 % (0-2) Myelocytes % (Manual) 1 % (0-0) Nucleated Red Blood Cells % 0.0 /100WBC (0.0-0.0) Immature Granulocytes # 0.010 10^3/ul (0.0-0.031) Neutrophils # 2.3 10^3/ul (1.6-7.5) Neutrophils # (Manual) 1.6 10^3/ul (1.6-7.5) Band Neutrophils # 0.2 10^3/ul (0.0-0.6) Lymphocytes (Manual) 0.9 10^3/ul (0.8-2.9) Lymphocytes # 0.8 10^3/ul (0.8-2.9) Reactive Lymphocytes # 0.2 10^3/ul (0.0-0.0) Monocytes # 0.4 10^3/ul (0.3-0.9) Monocytes # (Manual) 0.3 10^3/ul (0.3-0.9) Eosinophils # 0.2 10^3/ul (0.0-0.5) Basophils # 0.0 10^3/ul (0.0-0.1) Basophils # (Manual) 0.1 10^3/ul (0.0-0.0) Myelocytes # 0.0 10^3/ul (0.0-0.0) Nucleated Red Blood Cells # 0.0 10^3/ul (0.0-0.0) Platelet Estimate DECREASED Giant Platelets 1 % (0-0) Polychromasia 1+ (0-0) Poikilocytosis 1+ (0-0) Anisocytosis 1+ (0-0) Sodium Level 140 mmol/L (135-144) Potassium Level 3.6 mmol/L (3.5-5.1) Chloride Level 102 mmol/L (97-110) Carbon Dioxide Level 26 mmol/L (21-31) Anion Gap 12 (5-13) Blood Urea Nitrogen 9 mg/dl (7-20) Creatinine 0.83 mg/dl (0.61-1.24) Est Glomerular Filtrat Rate mL/min > 60 mL/min (>60) Glucose Level 117 mg/dl (70-220) Calcium Level 8.9 mg/dl (8.4-10.2) Total Bilirubin 0.6 mg/dl (0.2-1.3) Direct Bilirubin 0.00 mg/dl (0.00-0.20) Indirect Bilirubin 0.6 mg/dl (0-1.1) Aspartate Amino Transf (AST/SGOT) 53 IU/L (15-46) Alanine Aminotransferase (ALT/SGPT) 18 IU/L (13-69) Alkaline Phosphatase 95 IU/L (42-121) Total Protein 7.1 g/dl (6.1-8.1) Albumin 3.7 g/dl (3.3-4.9) Globulin 3.40 g/dl (1.3-3.2) Albumin/Globulin Ratio 1.08 IVONE RYAN MD Nov 08, 2018 13:50
[2018-11-08 14:18] VITALS: BP 125/83; PULSE 90; RESP 20
== END 2018-11-08 15:10 | disposition home or self-care (01) | DRG 378 ==
LOC: E/R 03:56 → 2NE 08:24
PROVIDERS: ADMIT Internal Medicine; ATTEND Internal Medicine
PROC: 0DJ08ZZ Inspection of Upper Intestinal Tract, Via Natural or Artificial Opening Endoscopic (ICD-10-PCS; principal; 2018-11-07 15:30)
DX: K29.21 Alcoholic gastritis with bleeding (principal); D62 Acute posthemorrhagic anemia; K70.0 Alcoholic fatty liver; K70.30 Alcoholic cirrhosis of liver without ascites; K20.9 Esophagitis, unspecified; K44.9 Diaphragmatic hernia without obstruction or gangrene; F41.9 Anxiety disorder, unspecified; F32.9 Major depressive disorder, single episode, unspecified; F10.20 Alcohol dependence, uncomplicated; Z72.89 Other problems related to lifestyle; Z87.891 Personal history of nicotine dependence
CPT/HCPCS: 36415; 76705; 80053; 83036; 83690; 83735; 84100; 84443; 84484; 85025; 85610; 85730; 86850; 86900; 86901; 93005; 96365; 96368; 96375; 96376; C9113; J0696; J2060; J2354; J2405; J3411; J3475; J7030